=== PATIENT | male | born 1975 | race Caucasian/White ===

== ENCOUNTER 2018-12-19 07:32 | Emergency (ER) | payer BC, OTHER ==
[2018-12-19] MEDS ORDERED: Acetaminophen/HYDROcodone 325-10 MG Tab PO ONE (07:47)
[2018-12-19] MEDS ORDERED: Ketorolac 60 MG/2 ML SDV IM ONE (07:47)
--- NOTE | 2018-12-19 07:53 | EDM.PDOC ---
ED HPI GENERAL MEDICAL PROBLEM - General Chief Complaint: Back Pain or Injury Stated Complaint: BACK PAIN Time Seen by Provider: 12/19/18 07:41 - History of Present Illness INITIAL COMMENTS - FREE TEXT/NARRATIVE: HISTORY AND PHYSICAL: History of present illness: Patient is a 43-year-old male presents with a chief complaint of low back pain that occurred when he was moving a hot water heater at work yesterday he's had left-sided back pain subsequent with some radiation to his left lower extremity denies incontinence or retention bowel or bladder denies numbness or weakness Review of systems: As per history of present illness and below otherwise all systems reviewed and negative. Past medical history: As per history of present illness and as reviewed below otherwise noncontributory. Surgical history: As per history of present illness and as reviewed below otherwise noncontributory. Social history: No reported history of drug or alcohol abuse. Family history: As per history of present illness and as reviewed below otherwise noncontributory. Physical exam: HEENT: Atraumatic, normocephalic, pupils reactive, negative for conjunctival pallor or scleral icterus, mucous membranes moist, throat clear, neck supple, nontender, trachea midline. Lungs: Clear to auscultation, breath sounds equal bilaterally, chest nontender. Heart: S1S2, regular, negative for clicks, rubs, or JVD. Abdomen: Soft, nondistended, nontender. Negative for masses or hepatosplenomegaly. Negative for costovertebral tenderness. Pelvis: Stable nontender. Genitourinary: Deferred. Rectal: Deferred. Extremities: Atraumatic, negative for cords or calf pain. Neurovascular unremarkable. Neuro: Awake, alert, oriented. Cranial nerves II through XII unremarkable. Cerebellum unremarkable. Motor and sensory unremarkable throughout. Exam nonfocal. Back: Patient has some mild paravertebral tenderness at the level of the lumbar spine is no vertebral body or point tenderness motor sensory are normal deep tendon reflexes are normal patient is able stand on his toes and back on his heels Diagnostics: X-ray lumbar spine Therapeutics: Toradol 60 mg IM hydrocodone 10 mg by mouth Impression: #1 acute lumbar strain Definitive disposition and diagnosis as appropriate pending reevaluation and review of above. LOWER BACK Pain Score (Numeric/FACES): 8 - Related Data Allergies Allergy/AdvReac Type Severity Reaction Status Date / Time No Known Allergies Allergy Verified 12/19/18 07:40 Home Meds: Home Meds . [No Known Home Meds] 12/19/18 [History] Past Medical History - Past Health History Medical/Surgical History: Denies Medical/Surgical History Other Musculoskeletal History: sciatica ED ROS GENERAL - Review of Systems Review Of Systems: ROS reveals no pertinent complaints other than HPI. ED EXAM, GENERAL - Physical Exam Exam: See Below (See dictation) Course - Vital Signs Last Recorded V/S: Last Vital Signs Temp 35.6 C 12/19/18 07:41 Pulse 73 12/19/18 07:41 Resp 18 12/19/18 07:41 BP 137/82 12/19/18 07:41 Pulse Ox 96 12/19/18 07:41 - Orders/Labs/Meds Orders: Active Orders 24 hr Category Date Time Status Lumbar Spine 2 or 3V [CR] Stat Exams 12/19/18 07:47 Ordered Meds: Medications Discontinued Medications Generic Name Dose Route Start Last Admin Trade Name Freq PRN Reason Stop Dose Admin Hydrocodone Bitart/Acetaminophen 1 tab 12/19/18 07:47 [place] 325-10 Mg PO 12/19/18 07:48 ONETIME ONE Ketorolac Tromethamine 60 mg 12/19/18 07:47 Toradol IM 12/19/18 07:48 ONETIME ONE Departure - Departure Time of Disposition: 07:53 Disposition: Home, Self-Care 01 Condition: Good Clinical Impression: Lumbar strain - Discharge Information Referrals: PCP,None [Primary Care Provider] - Additional Instructions: The following information is given to patients seen in the emergency department who are being discharged to home. This information is to outline your options for follow-up care. We provide all patients seen in our emergency department with a follow-up referral. The need for follow-up, as well as the timing and circumstances, are variable depending upon the specifics of your emergency department visit. If you don't have a primary care physician on staff, we will provide you with a referral. We always advise you to contact your personal physician following an emergency department visit to inform them of the circumstance of the visit and for follow-up with them and/or the need for any referrals to a consulting specialist. The emergency department will also refer you to a specialist when appropriate. This referral assures that you have the opportunity for followup care with a specialist. All of these measure are taken in an effort to provide you with optimal care, which includes your followup. Under all circumstances we always encourage you to contact your private physician who remains a resource for coordinating your care. When calling for followup care, please make the office aware that this follow-up is from your recent emergency room visit. If for any reason you are refused follow-up, please contact the [facility] emergency department at and asked to speak to the emergency department charge nurse. Ultram Flexeril diclofenac as prescribed follow-up occupational medicine return as needed as discussed - My Orders Last 24 Hours: My Active Orders 12/19/18 07:47 Lumbar Spine 2 or 3V [CR] Stat - Assessment/Plan Last 24 Hours: My Active Orders 12/19/18 07:47 Lumbar Spine 2 or 3V [CR] Stat
--- NOTE | 2018-12-19 08:50 | CR ---
INDICATION: Back pain TECHNIQUE: 3-view lumbar spine. COMPARISON: none FINDINGS: The lumbar vertebrae are anatomically aligned. There is degenerative disc space narrowing at L4-5. There is a possible pars defect at L5. There is no evidence of vertebral subluxation. There is narrowing and sclerosis of the L4-5 and L5-S1 facets. The SI joints appear normal. The paraspinal soft tissues appear normal. IMPRESSION: Degenerative disc disease at L4-5. Possible spondylolysis defect at L5. Dictated by Khari Gutierrez MD @ Dec 19 2018 8:46AM Signed by Dr. Khari Gutierrez @ Dec 19 2018 8:48AM
[2018-12-19 09:21] VITALS: BP 139/88; PULSE 75
== END 2018-12-19 09:08 | disposition home or self-care (01) ==
LOC: MW.ED 07:32
DX: S39.012A Strain of muscle, fascia and tendon of lower back, initial encounter (principal); X50.0XXA Overexertion from strenuous movement or load, initial encounter; Y93.89 Activity, other specified; Y92.89 Other specified places as the place of occurrence of the external cause; Y99.0 Civilian activity done for income or pay
CPT/HCPCS: 72100; 96372; 99283; A9270; J1885

== ENCOUNTER 2019-03-07 10:44 | Emergency (ER) | payer BC, OTHER ==
[2019-03-07 10:55] VITALS: BP 147/74
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
[2019-03-07 12:50] VITALS: PULSE 76
== END 2019-03-07 12:41 | disposition home or self-care (01) ==
LOC: MW.ED 10:44
DX: M54.5 Low back pain (principal); M54.6 Pain in thoracic spine; V48.5XXA Car driver injured in noncollision transport accident in traffic accident, initial encounter; Y92.410 Unspecified street and highway as the place of occurrence of the external cause
CPT/HCPCS: 71045; 71045-26; 72070; 72070-26; 72100; 72100-26; 99284-25

== ENCOUNTER 2019-04-26 13:34 | Emergency (ER) | payer BC, OTHER ==
[2019-04-26] MEDS ORDERED: Sodium Chloride 0.9% 1,000 ML IV SCH (14:30)
--- NOTE | 2019-04-26 14:54 | CR ---
Chest: Portable view of the chest was obtained. Comparison: Prior chest x-ray of 03/07/19. Heart size and mediastinum are normal. Lungs are clear. Bony structures are grossly intact. Impression: 1. Nothing acute is identified on portable chest x-ray. Diagnostic code #1 This report was dictated in [place] Standard Time
[2019-04-26 15:34] LABS: BLOOD UREA NITROGEN,BUN 18 mg/dL (7.0-18.0); CARBON DIOXIDE,CO2 29.8 mmol/L (21.0-32.0); CHLORIDE,CL 102 mmol/L (98-107); GLUCOSE RANDOM 96 mg/dL (74-106); POTASSIUM,K 4.1 mmol/L (3.5-5.1); SODIUM,NA 142 mmol/L (136-148)
--- NOTE | 2019-04-26 15:47 | EDM.PDOC ---
[facility] GENERAL MEDICAL PROBLEM - General Chief Complaint: Cardiovascular Problem Stated Complaint: DIZZY Time Seen by Provider: 04/26/19 13:35 - History of Present Illness INITIAL COMMENTS - FREE TEXT/NARRATIVE: Patient is a 43-year-old male with no significant past medical history presenting with a chief complaint of feeling dizzy. He states he has had several episodes over the past week or 2 where he is felt sudden onset of dizziness associated with anxiety and numbness and tingling to his entire body. Patient states he feels a little bit of shortness of breath when this happens. Patient states his symptoms have last anywhere from minutes to an hour. Patient states he was in the grocery store the other day and felt sudden onset of panic that he had to get out of the grocery store. Patient denies any syncopal episodes. Patient denies any recent travel, nausea, vomiting. She denies any recent illnesses. Pmhx: None Pshx: None Family Hx: noncontributory Smoking history? no Etoh use? none Drug use? none In addition to that documented in the HPI above, the additional ROS was obtained : Constitutional: Denies fevers or chills Eyes: Denies vision changes ENMT: Denies sore throat CV: Denies chest pain Resp: Denies SOB GI: Denies vomiting or diarrhea : Denies painful urination MSK: Denies recent trauma Skin: Denies new rashes Neuro: Denies new numbness or tingling or weakness Endocrine: Denies unexpected weight loss Heme: Denies bleeding disorders I have reviewed the triage vital signs Const: Well nourished, well developed, appears stated age Eyes: PERRL, no conjunctival injection HENT: NCAT, Neck supple without meningismus CV: RRR, Warm, well-perfused extremities RESP: CTAB, Unlabored respiratory effort GI: soft, non-tender, non-distended, no masses MSK: No gross deformities appreciated Skin: Warm, dry. No rashes Neuro: Alert, prosthetic technician II-XII grossly intact. Sensation and motor function of extremities grossly intact. Psych: Appropriate mood and affect Assessment and plan: Patient is a 43-year-old male with nonspecific dizziness. Patient had normal EKG. Normal labs. Patient is asymptomatic in the emergency department now. Patient will be certain to follow-up as an outpatient. No evidence of ACS, arrhythmia or stroke. - Related Data Allergies Allergy/AdvReac Type Severity Reaction Status Date / Time No Known Allergies Allergy Verified 04/26/19 13:46 Home Meds: Home Meds Ascorbic Acid [Vitamin C] 1 tab PO DAILY 04/26/19 [History] Meclizine [Antivert] 25 mg PO BID #20 tab.chew 04/26/19 [Rx] Past Medical History - Past Health History Medical/Surgical History: Denies Medical/Surgical History HEENT History: Reports: None Cardiovascular History: Reports: None Respiratory History: Reports: None Gastrointestinal History: Reports: None Genitourinary History: Reports: None Musculoskeletal History: Reports: Other (See Below) Other Musculoskeletal History: sciatica Neurological History: Reports: None Psychiatric History: Reports: None Endocrine/Metabolic History: Reports: None Hematologic History: Reports: None Immunologic History: Reports: None Oncologic (Cancer) History: Reports: None Dermatologic History: Reports: None - Infectious Disease History Infectious Disease History: Reports: Chicken Pox - Past Surgical History Head Surgeries/Procedures: Reports: None HEENT Surgical History: Reports: None Cardiovascular Surgical History: Reports: None Respiratory Surgical History: Reports: None GI Surgical History: Reports: Appendectomy Male Surgical History: Reports: None Endocrine Surgical History: Reports: None Neurological Surgical History: Reports: None Oncologic Surgical History: Reports: None Dermatological Surgical History: Reports: None Social & Family History - Family History Family Medical History: Noncontributory - Tobacco Use Smoking Status *Q: Never Smoker - Caffeine Use Caffeine Use: Reports: Coffee, Soda - Recreational Drug Use Recreational Drug Use: No ED ROS GENERAL - Review of Systems Review Of Systems: See Below ED EXAM, GENERAL - Physical Exam Exam: See Below Course - Vital Signs Last Recorded V/S: Last Vital Signs Temp 36.6 C 04/26/19 13:43 Pulse 72 04/26/19 13:43 Resp 16 04/26/19 13:43 BP 145/94 H 04/26/19 13:43 Pulse Ox 96 04/26/19 13:43 - Orders/Labs/Meds Orders: Active Orders 24 hr Category Date Time Status Blood Glucose Check, Bedside [RC] ONETIME Care 04/26/19 14:21 Active EKG 12 Lead [EKG Documentation Completion] [RC] ROUTINE Care 04/26/19 14:05 Active Sodium Chloride 0.9% [Normal Saline] 1,000 ml Med 04/26/19 14:30 Active IV ASDIRECTED Medication Orders Sodium Chloride (Normal Saline) 1,000 mls @ 999 mls/hr IV ASDIRECTED MARISOL Last Admin: 04/26/19 14:55 Dose: 999 mls/hr Labs: Laboratory Tests 04/26/19 04/26/19 04/26/19 Range/Units 14:52 14:52 14:59 WBC 8.34 (4.0-11.0) K/uL RBC 5.01 (4.50-5.90) M/uL Hgb 15.7 (13.0-17.0) g/dL Hct 43.5 (38.0-50.0) % MCV 86.8 (80.0-98.0) fL MCH 31.3 (27.0-32.0) pg MCHC 36.1 (31.0-37.0) g/dL RDW Std Deviation 40.2 (28.0-62.0) fl RDW Coeff of Markel 13 (11.0-15.0) % Plt Count 222 (150-400) K/uL MPV 11.70 (7.40-12.00) fL Neut % (Auto) 57.3 (48.0-80.0) % Lymph % (Auto) 31.4 (16.0-40.0) % Estill % (Auto) 9.8 (0.0-15.0) % Eos % (Auto) 1.0 (0.0-7.0) % Baso % (Auto) 0.5 (0.0-1.5) % Neut # (Auto) 4.8 (1.4-5.7) K/uL Lymph # (Auto) 2.6 H (0.6-2.4) K/uL Estill # (Auto) 0.8 (0.0-0.8) K/uL Eos # (Auto) 0.1 (0.0-0.7) K/uL Baso # (Auto) 0.0 (0.0-0.1) K/uL Sodium 142 (136-148) mmol/L Potassium 4.1 (3.5-5.1) mmol/L Chloride 102 (98-107) mmol/L Carbon Dioxide 29.8 (21.0-32.0) mmol/L BUN 18 (7.0-18.0) mg/dL Creatinine 1.1 (0.8-1.3) mg/dL Est Cr Clr Drug Dosing 98.87 mL/min Estimated GFR (MDRD) > 60.0 ml/min Glucose 96 (74-106) mg/dL POC Glucose 74 (60-110) mg/dL Calcium 9.8 (8.5-10.1) mg/dL Total Bilirubin 0.4 (0.2-1.0) mg/dL AST 22 (15-37) IU/L ALT 47 (14-63) IU/L Alkaline Phosphatase 65 (46-116) U/L Troponin I (0.000-0.056) ng/mL Total Protein 7.8 (6.4-8.2) g/dL Albumin 4.4 (3.4-5.0) g/dL Globulin 3.4 (2.6-4.0) g/dL Albumin/Globulin Ratio 1.3 (0.9-1.6) 04/26/19 Range/Units 16:35 WBC (4.0-11.0) K/uL RBC (4.50-5.90) M/uL Hgb (13.0-17.0) g/dL Hct (38.0-50.0) % MCV (80.0-98.0) fL MCH (27.0-32.0) pg MCHC (31.0-37.0) g/dL RDW Std Deviation (28.0-62.0) fl RDW Coeff of Markel (11.0-15.0) % Plt Count (150-400) K/uL MPV (7.40-12.00) fL Neut % (Auto) (48.0-80.0) % Lymph % (Auto) (16.0-40.0) % Estill % (Auto) (0.0-15.0) % Eos % (Auto) (0.0-7.0) % Baso % (Auto) (0.0-1.5) % Neut # (Auto) (1.4-5.7) K/uL Lymph # (Auto) (0.6-2.4) K/uL Estill # (Auto) (0.0-0.8) K/uL Eos # (Auto) (0.0-0.7) K/uL Baso # (Auto) (0.0-0.1) K/uL Sodium (136-148) mmol/L Potassium (3.5-5.1) mmol/L Chloride (98-107) mmol/L Carbon Dioxide (21.0-32.0) mmol/L BUN (7.0-18.0) mg/dL Creatinine (0.8-1.3) mg/dL Est Cr Clr Drug Dosing mL/min Estimated GFR (MDRD) ml/min Glucose (74-106) mg/dL POC Glucose (60-110) mg/dL Calcium (8.5-10.1) mg/dL Total Bilirubin (0.2-1.0) mg/dL AST (15-37) IU/L ALT (14-63) IU/L Alkaline Phosphatase (46-116) U/L Troponin I < 0.050 (0.000-0.056) ng/mL Total Protein (6.4-8.2) g/dL Albumin (3.4-5.0) g/dL Globulin (2.6-4.0) g/dL Albumin/Globulin Ratio (0.9-1.6) Meds: Medications Generic Name Dose Route Start Last Admin Trade Name Freq PRN Reason Stop Dose Admin Sodium Chloride 1,000 mls @ 999 mls/hr 04/26/19 14:30 04/26/19 14:55 Normal Saline IV 999 mls/hr ASDIRECTED MARISOL Administration Discontinued Medications Generic Name Dose Route Start Last Admin Trade Name Freq PRN Reason Stop Dose Admin Meclizine HCl 25 mg 04/26/19 16:33 04/26/19 16:37 Antivert PO 04/26/19 16:34 25 mg ONETIME ONE Administration Departure - Departure Time of Disposition: 15:46 Disposition: Home, Self-Care 01 Clinical Impression: Palpitations Prescriptions: Meclizine [Antivert] 25 mg PO BID #20 tab.chew Instructions: Vertigo, [id number], Palpitations, [id number] Referrals: PCP,None [Primary Care Provider] - Forms: ED Department Discharge Additional Instructions: The following information is given to patients seen in the emergency department who are being discharged to home. This information is to outline your options for follow-up care. We provide all patients seen in our emergency department with a follow-up referral. The need for follow-up, as well as the timing and circumstances, are variable depending upon the specifics of your emergency department visit. If you don't have a primary care physician on staff, we will provide you with a referral. We always advise you to contact your personal physician following an emergency department visit to inform them of the circumstance of the visit and for follow-up with them and/or the need for any referrals to a consulting specialist. The emergency department will also refer you to a specialist when appropriate. This referral assures that you have the opportunity for follow-up care with a specialist. All of these measure are taken in an effort to provide you with optimal care, which includes your follow-up. Under all circumstances we always encourage you to contact your private physician who remains a resource for coordinating your care. When calling for follow-up care, please make the office aware that this follow-up is from your recent emergency room visit. If for any reason you are refused follow-up, please contact the [facility] Emergency Department at and asked to speak to the emergency department charge nurse. Sepsis Event Note - Evaluation Sepsis Screening Result: No Definite Risk - Focused Exam Vital Signs: Vital Signs Temp Pulse Resp BP Pulse Ox 04/26/19 13:43 36.6 C 72 16 145/94 H 96 Date Exam was Performed: 04/26/19 Time Exam was Performed: 18:54 - My Orders Last 24 Hours: My Active Orders 04/26/19 14:05 EKG 12 Lead [EKG Documentation Completion] [RC] ROUTINE 04/26/19 14:21 Blood Glucose Check, Bedside [RC] ONETIME 04/26/19 14:30 Sodium Chloride 0.9% [Normal Saline] 1,000 ml IV ASDIRECTED - Assessment/Plan Last 24 Hours: My Active Orders 04/26/19 14:05 EKG 12 Lead [EKG Documentation Completion] [RC] ROUTINE 04/26/19 14:21 Blood Glucose Check, Bedside [RC] ONETIME 04/26/19 14:30 Sodium Chloride 0.9% [Normal Saline] 1,000 ml IV ASDIRECTED
[2019-04-26] MEDS ORDERED: Meclizine 25 MG Tab PO ONE (16:33)
[2019-04-26 19:40] VITALS: BP 135/88; PULSE 73
== END 2019-04-26 17:41 | disposition home or self-care (01) ==
LOC: MW.ED 13:34
DX: R00.2 Palpitations (principal); R42 Dizziness and giddiness
CPT/HCPCS: 36415; 71045; 80053; 82962; 84484; 85025; 93005; 96360; 99284; A9270; J7030; 99283